=== PATIENT | female | born 1960 | race Caucasian/White ===

== ENCOUNTER 2016-11-07 14:06 | Emergency (ER) | payer OTHER ==
[~2016-11-07 14:06] MED LIST: AMITRIPTYLINE H25 MG PO; CARAFATE EQUIVAL1 GM PO; IRON325 MG PO; LORATADINE PO; LORAZEPAM1 MG PO; NAPROXEN250 MG PO; OMEPRAZOLE20 MG PO; PERCOCET1 TA1 PO; TRAZODONE HCL50 MG PO; VITAMIN D-31000 UNIT PO
--- NOTE | 2016-11-07 15:45 | ED CLINICAL REPORT ---
Clinical Report - Physicians/Mid Levels [facility] [address] [place] [address] 11/07/2016 14:06 Patient: ANA RANDALL Time Seen: 14:27 Nov 07 2016. Arrived- By private vehicle. Historian- patient. HISTORY OF PRESENT ILLNESS Chief Complaint: weakness. This started 12 months [employer]. (Patient reports whole month history of weight loss, fatigue, ecchymosis to bilateral lower extremities, without known injury, dizziness over the last 1 month. Has had multiple workups for this. Last saw her primary care provider 2 months ago for this. 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 Had recent endoscopy with ,with ulcers.). REVIEW OF SYSTEMS No sore throat, sinus drainage, cough, difficulty breathing or abdominal pain. No nausea, vomiting, diarrhea, difficulty with urination or blackouts. No difficulty with ambulation. All systems otherwise negative, except as recorded above. SOCIAL HISTORY Former smoker (1 week prior). No alcohol use or drug use. ADDITIONAL NOTES The nursing notes have been reviewed. PHYSICAL EXAM Vital Signs: 11/07/2016 14:19 BP: 142/91. HR: 109. RR: 18. O2 saturation: 100%. Temp: 97.8 F. Pain level now: 5/10. Appearance: Alert. Anxious. Eyes: Eyes normal inspection. ENT: Ears normal. Nose normal. Pharynx normal. Neck: Normal inspection. CVS: Tachycardia. Respiratory: No respiratory distress. Breath sounds normal. Abdomen: No visible injury. Soft. Bowel sounds normal. No abdominal tenderness. The bowel sounds are not abnormal. Skin: (small b/l medial slight ecchymosis, non tender largely). LABS, X-RAYS, AND EKG EKG: EKG time: (1455). No acute process. No acute ischemia. Rate: 86. Normal P waves. no changes from may 03/2016. EKG unchanged when compared with prior EKG. (may 032015). The study has been interpreted contemporaneously. The study has been independently viewed by me. The EKG appears to be a good tracing. Interpretation time: 1456. Laboratory Tests: UA-Culture if indicated: (BLAIRE: 11/07/2016 14:25) ( MsgRcvd 11/07/2016 15:11) Final results Test Result Flag Units (Reference) URINE COLOR YELLOW URINE APPEARANCE CLEAR URINE GLUCOSE NEGATIVE (NEGATIVE) URINE BILIRUBIN NEGATIVE (NEGATIVE) URINE KETONE NEGATIVE (NEGATIVE) URINE SPECIFIC GRAVITY 1.020 (1.010-1.030) URINE PH 6.0 (5.0-8.0) URINE PROTEIN NEGATIVE (NEGATIVE) URINE UROBILINOGEN 0.2 EU/dL (0.2-1.0) URINE NITRITE NEGATIVE (NEGATIVE) URINE BLOOD TRACE-LYSED (NEGATIVE) URINE LEUK ESTERASE NEGATIVE (NEGATIVE) URINE RBC NONE SEEN rbc/hpf (0-1) URINE WBC 0-1 wbc/hpf (0-1) URINE EPITHELIAL CELLS 5-10 EPI/hpf (0-5) URINE BACTERIA TRACE (<1+) (NONE SEEN) URINE COMMENT CULT NOT INDICATED URINE CULTURES ARE SET-UP BASED ON THE FOLLOWING CRITERIA:POSITIVE NITRITEPOSITIVE LEUKOCYTE ESTERASEGREATER THAN 10 WHITE BLOOD CELLSMODERATE (2+) OR GREATER BACTERIA CBC w Diff: (BLAIRE: 11/07/2016 14:57) ( MsgRcvd 11/07/2016 15:31) Final results Test Result Flag Units (Reference) WHITE BLOOD COUNT 8.6 K/uL (4.5-11.5) RED BLOOD COUNT 4.19 M/uL (4.00-5.20) HEMOGLOBIN 12.6 gm/dL (12.0-16.0) HEMATOCRIT 38.3 % (36.0-46.0) MEAN CELL VOLUME 91 fL (80-100) MEAN CORPUSCULAR HGB 30 pg (26-34) MEAN CORPUSCULAR HGB CONC 33 g/dL (31-37) RED CELL DISTRIBUTION WIDTH 14.3 % (11.6-14.8) PLATELET COUNT 300 K/uL (150-400) NEUTROPHIL % 67.4 % (50-75) LYMPH % 24.2 L % (25-40) MONO % 4.7 % (3-14) EOSINOPHIL % 3.0 % (0-4) BASOPHIL % 0.7 % (0-2) PT with INR: (BLAIRE: 11/07/2016 14:57) ( MsgRcvd 11/07/2016 15:32) Final results Test Result Flag Units (Reference) INR 0.9 (0.8-1.2) Low Intensity Therapy: INR 1.5-2.0 PT range 18.5-23.1Mod.Intensity Therapy: INR 2.0-3.0 PT range 23.1-31.5High Intensity Therapy: INR 2.5-3.5 PT range 27.4-35.5High Intensity Therapy 2: INR 3.0-4.0 PT range 31.5-39.3 APTT 30 SECONDS (24-34) Urine Drug Screen: (BLAIRE: 11/07/2016 14:25) ( MsgRcvd 11/07/2016 15:18) Final results Test Result Flag Units (Reference) AMPHETAMINE/METHAMPHETAMINE NEGATIVE (NEGATIVE) BARBITURATE NEGATIVE (NEGATIVE) BENZODIAZEPINE NEGATIVE (NEGATIVE) CANNABINOID NEGATIVE (NEGATIVE) COCAINE NEGATIVE (NEGATIVE) ECSTASY NEGATIVE (NEGATIVE) METHADONE NEGATIVE (NEGATIVE) OPIATE NEGATIVE (NEGATIVE) The urine drug screen is a qualitative screening test fordrug overdose and abuse. All screen results should beconsidered as presumptive.Drugs screened for are as follows:BenzodiazepinesCocaineAmphetamines/MetamphetaminesTHC (Tetrahydrocannabinol)OpiatesBarbituratesEcstasyMethadonePositive results are unconfirmed. For confirmation, notifythe lab for the specimen to be sent to the reference lab.All confirmations must be performed by a differentmethodology.The ingestion of natural herbal and plant productscontaining Ephedra/Ephedra metabolites can produce in urineone or more substances capable of cross reacting withamphetamine/methamphetamine immunoassays. These testsprovide a preliminary result only. A more specificalternative chemical method must be used to obtain aconfirmed analytical result. CMP: (BLAIRE: 11/07/2016 14:57) ( MsgRcvd 11/07/2016 15:28) Final results Test Result Flag Units (Reference) GLUCOSE 93 mg/dL (70-110) BUN 20 H mg/dL (7-18) CREATININE 1.0 mg/dL (0.6-1.3) Estimated GFR >60 mL/min Estimated GFR- >60 mL/min Note: Persistent reduction over 3 months in eGFR<60 mL/min/1.73 m2 defines CKD. Patients with eGFR values>=60 mL/min/1.73 m2 may also have CKD if evidence ofpersistent proteinuria. Additional information may be foundat www.kidney.org. SODIUM 143 mmol/L (136-145) POTASSIUM 4.2 mmol/L (3.5-5.1) CHLORIDE 106 mmol/L (98-107) CARBON DIOXIDE 29 mmol/L (21-32) CALCIUM 8.9 mg/dL (8.5-10.1) TOTAL PROTEIN 6.8 g/dL (6.4-8.2) ALBUMIN 3.6 g/dL (3.3-5.0) BILIRUBIN, TOTAL 0.2 mg/dL (0.0-1.0) ALKALINE PHOSPHATASE 100 U/L (46-116) AST (SGOT) 14 L U/L (15-37) ALT (SGPT) 22 U/L (12-78) LIPASE 143 U/L (73-393) AMYLASE 49 U/L (25-115) THYROID STIMULATING HORMONE 0.828 uIU/mL (0.30-3.74) . PROGRESS AND PROCEDURES Course of Care: patient with no cough or shortness of breath or chest pain. At this time no EKG changes, unremarkable lab workup she had previous workup within the last 2-3 months. Patient is stable here. No distress. Patient has no focal acute findings, this has been ongoing for the last 12 months. She is to follow-up with her primary care provider closely. Chronic COPD. No active disease, no indication for antibiotic, or further workup acutely here in the ER. Patient is stable. Physical exam findings are improved. Patient/family counseled. Disposition: Discharged. CLINICAL IMPRESSION Dizziness COPD. Weakness (chronic) Weight Loss (over 12 months) B/L ecchymosis. INSTRUCTIONS Follow-up: Follow up with your doctor. Call for an appointment. (Electronically signed by Chetna Mares P.A.-C 11/07/2016 16:05)
--- NOTE | 2016-11-07 15:45 | ED ORDER SUMMARY ---
..... Patient: ANA RANDALL OrderSheet [facility] VisitID: [id number] [address] [place] [address] 56y, F Registration Date/Time: 11/07/2016 ORDER SHEET Weight: 46 kg (measured) Allergies: Demerol, morphine GENERAL ORDERS: CBC w Diff Urgent (14:46 11/07/2016 EKoroleva P.A.-C) (Ack 14:48 NHouse ER Tech1) (15:07 NHouse ER Tech1) CMP Urgent (14:46 11/07/2016 EKoroleva P.A.-C) (Ack 14:48 NHouse ER Tech1) (15:07 NHouse ER Tech1) UA-Culture if indicated Urgent (14:46 11/07/2016 EKoroleva P.A.-C) (Ack 14:48 NHouse ER Tech1) (14:50 Jasbir R.N.) PT with INR Urgent (14:46 11/07/2016 EKoroleva P.A.-C) (Ack 14:48 NHouse ER Tech1) (15:07 NHouse ER Tech1) PTT Urgent (14:46 11/07/2016 EKoroleva P.A.-C) (Ack 14:48 NHouse ER Tech1) (15:07 NHouse ER Tech1) Lipase Urgent (14:46 11/07/2016 EKoroleva P.A.-C) (Ack 14:48 NHouse ER Tech1) (15:07 NHouse ER Tech1) Amylase Urgent (14:46 11/07/2016 EKoroleva P.A.-C) (Ack 14:48 NHouse ER Tech1) (15:07 NHouse ER Tech1) TSH Urgent (14:46 11/07/2016 EKoroleva P.A.-C) (Ack 14:48 NHouse ER Tech1) (15:07 NHouse ER Tech1) Urine Drug Screen Urgent (14:46 11/07/2016 EKoroleva P.A.-C) (Ack 14:48 NHouse ER Tech1) (14:50 Jasbir R.N.) Boom Supervisor (Continuous) (14:47 11/07/2016 Louie Avina) (14:50 Jasbir Cruz) EKG - ER Stat (14:47 11/07/2016 Louie Avina) (14:55 LNations ER Tech1) Vitals (15:34 11/07/2016 Louie Avina) (15:49 LNations ER Tech1) MEDICATION ORDERS: IV FLUIDS: ORDER SHEET NOTES: [Electronically signed by Chetna Mares P.A.-C (16:05 11/07/2016)] [Electronically signed by Teena Glynn R.N. (19:18 11/07/2016)] [Electronically locked/signed by Teena Glynn R.N. (19:18 11/07/2016)]
--- NOTE | 2016-11-07 15:45 | ED NURSING NOTES ---
Clinical Report - Nurses [facility] [address] [place] [address] 11/07/2016 14:06 Patient: ANA RANDALL TRIAGE Triage time 14:16. Acuity: LEVEL 4. Chief Complaint: (WT LOSS, bruising). Alert. No acute distress. TAMMY COMA SCORE: Grandin Coma Scale: 15- eyes open spontaneously (4); best verbal response- oriented x 4 (5); best motor response- obeys commands (6). --14:28 Teena Glynn R.N. 14:19 11/07/16. BP: 142/91. HR: 109. RR: 18. O2 saturation: 100%. Temp: 97.8 F (oral). Pain level now: 10. --14:28 Teena Gylnn R.N. Weight: 46 kg measured. --14:17 Teena Glynn R.N.. Height/Length: 66 inches Per Patient. BMI: 16.4. --14:19 Teena Glynn R.N. Medications Amyltripline. LORazepam Oral 2 mg, PRN. Naproxen Oral. Omeprazole Oral. TraZODone HCl Oral, daily. Vitamin D Oral. --14:21 Teena Glynn R.N. some sntibiotic for chronic UTI's. --14:22 Teena Glynn R.N. Medication/allergy information source: the patient. --14:28 Teena Glynn R.N. Allergies Demerol. morphine. --14:21 Teena Glynn R.N. History Arrived by private vehicle. Historian: patient. Unaccompanied. Primary physician (Giuseppe). Onset. ("a long time"). SOCIAL HX: Smoker- current status unknown (quit a week ago). No alcohol use or drug use. FALL RISK ASSESSMENT: Fall risk assessment completed. No fall risk identified. FUNCTIONAL ASSESSMENT: Functional assessment: no impairments noted. LEARNING NEEDS ASSESSMENT: The learning needs assessment revealed no barriers. --14:28 Teena Glynn R.N. PROBLEMS: COPD - Chronic Obstructive Pulmonary Disease [Active]. Ovarian Cancer [Active]. Tension-Type Headache [Active]. Tourette Syndrome [Active]. --14: Teena Glynn R.N. Hypocalcemia. Gastritis. Nausea. Near Syncope. Stomach Cancer. Concussion. Pharyngitis. Lumbar Strain. Fall. Migraine Headache. Head Injury. Cancer - in remission now. Emphysema. COPD - Chronic Obstructive Pulmonary Disease. Back Pain. Back Injury. Intervertebral Disc Disease. Pelvic Pain. UTI - Urinary Tract Infection. Hypotension. Eustachian Tube Dysfunction. Vertigo. Myofascial Strain. Constipation. Healing Abscess. Abscess. Depression. Tetanus Status. Cellulitis. Heart Disease. Abdominal Pain. Frequent Ear Infections. Acute Otalgia. Acute Pain. Cardiovascular Risk Factors. Chest Pain. Cervical Strain. Immunizations. LNMP - Last Normal Menstrual Period. Malignant Lymphoma. Bronchitis. Cancer. Pleurisy. Chest Wall Pain. Hypertension. --14:23 Teena Glynn R.N. Anxiety Reaction [RuleOut]. Allergic Reaction [RuleOut]. Pilonidal Cyst [RuleOut]. Labyrinthitis [RuleOut]. Rib Fracture [RuleOut]. --14:23 Teena Glynn R.N. ADDITIONAL SURGERIES: Ablation for rapid HR. Appendectomy. Back Surgery. Hysterectomy. Oophorectomy. Salpingectomy. --14:23 Teena Glynn R.N. Assessment GENERAL / NEURO / PSYCH: The patient is awake and alert, is oriented and cooperative and appears anxious. She has good eye contact. RESPIRATORY: Respirations not labored. SKIN: Skin is warm and dry. --14:28 Teena Glynn R.N. Interventions ID and allergy band on patient. To treatment room. --14:28 Teena Glynn R.N. PHYSICAL ASSESSMENT 14:31 11/07/16. Ambulatory to room. Patient gowned. GENERAL / NEURO / PSYCH: The patient is awake and alert, is oriented and cooperative and appears anxious. She has good eye contact. RESPIRATORY: Respirations not labored. SKIN: Skin is warm and dry. --14:31 Teena Glynn R.N. NURSING PROGRESS NOTES 14:17 collecting urine specimen. --14:17 Teena Glynn R.N. 14:31 11/07/16. Patient gowned. Head of bed elevated. Call light placed in reach. Side rails up x 1. Bed placed in lowest position. Brakes of bed on. --14:31 Teena Glynn R.N. 14:32 11/07/16. :patient confirmed. Clean catch urine collected; sample sent to lab. Specimen labeled in the presence of the patient. --14:32 Teena Glynn R.N. EKG time: (1455). EKG was ordered, performed by a tech and shown to the ED physician. --14:55 Bere Taylor ER Tech1 Blood samples drawn by lab. --15:01 Teena Glynn R.N. monitor and storage bin tender, pulse oximeter and NIBP monitor placed on patient. --15:01 Teena Glynn R.N. 15:43 11/07/16. BP: 132/70. HR: 97. RR: 18. O2 saturation: 100%. Pain level now: 10. --15:44 Teena Glynn R.N. 15:44 11/07/16. The patient is calm. Overall patient status is the same- she states feels the same. RESPIRATORY: No respiratory distress. SKIN: Skin is warm and dry. --15:44 Teena Glynn R.N. 15:15 11/07/16. BP: 128/80. HR: 97. RR: 18. O2 saturation: 98% on room air. --19:17 Teena Glynn R.N. DISPOSITION / DISCHARGE 15:52 11/07/16. BP: 132/70. HR: 96. O2 saturation: 97%. --15:52 Bere Taylor ER Tech1 Departure time: 1555. Condition at departure: stable. No learning barriers present. Discharge instructions provided and reviewed with the patient. Patient verbalized understanding. Written instructions provided in Lao. The patient was discharged home and unaccompanied at time of discharge. She left the Emergency Department ambulatory and via private vehicle. FALL RISK ASSESSMENT: Fall risk assessment completed. No fall risk identified. --19:18 Renard, Teena, R.N. Locked/Released at 11/07/2016 19:18 by Teena Glynn R.N.
--- NOTE | 2016-11-07 15:45 | ED ORDER SUMMARY ---
..... Patient: ANA RANDALL OrderSheet [facility] VisitID: [id number] [address] [place] [address] 56y, F Registration Date/Time: 11/07/2016 ORDER SHEET Weight: 46 kg (measured) Allergies: Demerol, morphine GENERAL ORDERS: CBC w Diff Urgent (14:46 11/07/2016 EKoroleva P.A.-C) (Ack 14:48 NHouse ER Tech1) (15:07 NHouse ER Tech1) CMP Urgent (14:46 11/07/2016 EKoroleva P.A.-C) (Ack 14:48 NHouse ER Tech1) (15:07 NHouse ER Tech1) UA-Culture if indicated Urgent (14:46 11/07/2016 EKoroleva P.A.-C) (Ack 14:48 NHouse ER Tech1) (14:50 Jasbir R.N.) PT with INR Urgent (14:46 11/07/2016 EKoroleva P.A.-C) (Ack 14:48 NHouse ER Tech1) (15:07 NHouse ER Tech1) PTT Urgent (14:46 11/07/2016 EKoroleva P.A.-C) (Ack 14:48 NHouse ER Tech1) (15:07 NHouse ER Tech1) Lipase Urgent (14:46 11/07/2016 EKoroleva P.A.-C) (Ack 14:48 NHouse ER Tech1) (15:07 NHouse ER Tech1) Amylase Urgent (14:46 11/07/2016 EKoroleva P.A.-C) (Ack 14:48 NHouse ER Tech1) (15:07 NHouse ER Tech1) TSH Urgent (14:46 11/07/2016 EKoroleva P.A.-C) (Ack 14:48 NHouse ER Tech1) (15:07 NHouse ER Tech1) Urine Drug Screen Urgent (14:46 11/07/2016 EKoroleva P.A.-C) (Ack 14:48 NHouse ER Tech1) (14:50 Jasbir R.N.) [employer]stabout Head (Continuous) (14:47 11/07/2016 Louie Avina) (14:50 Jasbir Cruz) EKG - ER Stat (14:47 11/07/2016 Louie Avina) (14:55 LNations ER Tech1) Vitals (15:34 11/07/2016 Louie Avina) (15:49 LNations ER Tech1) MEDICATION ORDERS: IV FLUIDS: ORDER SHEET NOTES: [Electronically signed by Chetna Mares P.A.-C (16:05 11/07/2016)] [Electronically signed by Teena Glynn R.N. (19:18 11/07/2016)] [Electronically locked/signed by Teena Glynn R.N. (19:18 11/07/2016)]
--- NOTE | 2016-11-07 19:19 | ED MAR SUMMARY ---
..... Medication Administration Record [facility] [address] [place], [place] [id number] Patient: ANA RANDALL Visit ID: [id number] 56y, F Weight: 46.0 kg Height/Length: 66 in BMI: 16.4 ALLERGIES: Demerol, morphine
--- NOTE | 2016-11-07 19:19 | ED MED RECONCILIATION SUMMARY ---
Patient: ANA RANDALL Medication Reconciliation Report [facility] VisitID: [id number] [address] [place] [address] 56y, F Registration Date/Time: 11/07/2016 Weight: 46 kg Height/Length: 66 in. BMI: 16.4 ALLERGIES: Demerol, morphine The patient's Home Medications are listed below: THE FOLLOWING MEDICATIONS NEED TO BE RECONCILED: Amyltripline LORazepam Oral 2 mg, PRN Naproxen Oral Omeprazole Oral some sntibiotic for chronic UTI's TraZODone HCl Oral, daily Vitamin D Oral The source(s) of the original Home Medication information: patient The following Medications were given to the patient in the Emergency Department: None. The following Medications were prescribed to the patient: None.
--- NOTE | 2016-11-07 19:19 | ED MED RECONCILIATION SUMMARY ---
Patient: ANA RANDALL Medication Reconciliation Report [facility] VisitID: [id number] [address] [place] [address] 56y, F Registration Date/Time: 11/07/2016 Weight: 46 kg Height/Length: 66 in. BMI: 16.4 ALLERGIES: Demerol, morphine The patient's Home Medications are listed below: THE FOLLOWING MEDICATIONS NEED TO BE RECONCILED: Amyltripline LORazepam Oral 2 mg, PRN Naproxen Oral Omeprazole Oral some sntibiotic for chronic UTI's TraZODone HCl Oral, daily Vitamin D Oral The source(s) of the original Home Medication information: patient The following Medications were given to the patient in the Emergency Department: None. The following Medications were prescribed to the patient: None.
--- NOTE | 2016-11-07 19:19 | ED MAR SUMMARY ---
..... Medication Administration Record [facility] [address] [place], [place] [id number] Patient: ANA RANDALL Visit ID: [id number] 56y, F Weight: 46.0 kg Height/Length: 66 in BMI: 16.4 ALLERGIES: Demerol, morphine
--- NOTE | 2016-11-07 19:19 | ED DISCHARGE INSTRUCTIONS ---
Patient: ANA RANDALL General Instructions [facility] VisitID: [id number] [address] [place] [address] 56y, F Registration Date/Time: 11/07/2016 Dizziness COPD. Weakness (chronic) Weight Loss (over 12 months) B/L ecchymosis. INSTRUCTIONS Follow-up: Follow up with your doctor. Call for an appointment. ADDITIONAL INFORMATION Dizziness [Uncertain Cause] Dizziness is a common symptom sometimes described as "lightheadedness" or feeling like you are going to faint. If it lasts for only a few seconds and is related to changes in position (such as getting up after lying or sitting for a long time), it is usually not a sign of anything serious. Dizziness that lasts for minutes to hours, or comes on for no apparent reason, may be a sign of a more serious problem (such as dehydration, a medicine reaction, disease of the heart or brain). Today's exam did not show an exact cause for your dizzy spell . Sometimes additional tests are required before a cause can be found. Therefore, it is important to follow up with your doctor if your symptoms continue. Home Care: 1) If a dizzy spell occurs and lasts more than a few seconds, lie down until it passes. If you are lying down, then you cannot hurt yourself by falling if you do faint. 2) Do not drive or operate dangerous equipment until the dizzy spells have stopped for at least 48 hours. 3) If dizzy spells occur with sudden standing, this may be a sign of mild dehydration. Drink extra fluids over the next few days. 4) If you recently started a new medicine or if you had the dose of a current medicine increased (especially blood pressure medicine), talk with the prescribing doctor about your symptoms. Dose adjustments may be needed. Follow Up with your doctor for further evaluation within the next seven days, if your symptoms continue. Get Prompt Medical Attention if any of the following occur: -- Worsening of your symptoms -- Fainting, headache or seizure -- Repeated vomiting -- Feeling like you or the room is spinning -- Chest, arm, neck, back or jaw pain -- Palpitations (the sense that your heart is fluttering or beating fast or hard) -- Shortness of breath -- Blood in vomit or stool (black or red color) -- Weakness of an arm or leg or one side of the face -- Difficulty with speech or vision You have been given the following additional information: Dizziness, Unk Cause (Electronically signed by Chetna Mares P.A.-C 11/07/2016 16:05)
== END 2016-11-07 15:54 | disposition home or self-care (01) ==
LOC: ED SRH 14:06
DX: R42 Dizziness and giddiness (principal); J44.9 Chronic obstructive pulmonary disease, unspecified; R53.1 Weakness; R63.4 Abnormal weight loss; R58 Hemorrhage, not elsewhere classified; I10 Essential (primary) hypertension; Z79.899 Other long term (current) drug therapy; Z87.891 Personal history of nicotine dependence; Z88.5 Allergy status to narcotic agent
CPT/HCPCS: 90004; 90074; 90100; 92235; 92530; 92760; 92761; 92762; 92763; 92764; 92765; 92766; 92767; 93140; 94001; 94060; 95059

== ENCOUNTER 2017-03-23 22:48 | Emergency (ER) | payer OTHER ==
--- NOTE | 2017-03-24 19:43 | ED NURSING NOTES ---
Clinical Report - Nurses [facility] [place] [address] 03/23/2017 22:47 Patient: ANA RANDALL TRIAGE Triage time 22:54 Mar 23 2017. Acuity: LEVEL 4. Chief Complaint: DEPRESSION. Alert. No acute distress. SEPSIS SCREEN: Sepsis Screen. Negative (no infection suspected/documented). --23:11 Lazaro Smith R.N. 22:54 03/23/17. BP: 155/78. HR: 103. RR: 16. O2 saturation: 100%. Temp: 97.7 F. Pain level now: 0/10. --23:11 Lazaro Smith R.N. Weight: 47.6 kg stated. Height/Length: 66 inches Per Patient. BMI: 16.9. --22:54 Lazaro Smith R.N. Medications Naproxen Oral. Omeprazole Oral. --01:37 Marissa Chin R.N. Amyltripline 150 mg at hs. LORazepam Oral 2 mg, 3x a day as needed. TraZODone HCl Oral 50 mg, 1 and 1/2 tabs, at bedtime. Vitamin D Oral (Capsule 1000 unit) 1 capsule, hs. --01:37 Karla Morrison R.N. OLANZapine Oral 5 mg, at bedtime. --11:41 Karla Morrison R.N. The following entry was struck by Karla Morrison R.N., 11:41 (03/24/17) Reason - other. <<STRICKEN ENTRY-- some sntibiotic for chronic UTI's. --01:37 Marissa Chin R.N. --END STRIKE>> The following entry was struck and corrected by Karla Morrison R.N., 11:41 (03/24/17) Reason for correction - other(correction). <<STRICKEN ENTRY-- LORazepam Oral 2 mg, PRN. --01:37 Chin, Marissa, R.N. --END STRIKE>> The following entry was struck and corrected by Karla Morrison R.N., 11:40 (03/24/17) Reason for correction - other(correction). <<STRICKEN ENTRY-- TraZODone HCl Oral, daily. --01:37 Marissa Chin R.N. --END STRIKE>> The following entry was struck and corrected by Karla Morrison R.N., 11:39 (03/24/17) Reason for correction - other(correction). <<STRICKEN ENTRY-- Amyltripline. --01:37 Marissa Chin R.N. --END STRIKE>> The following entry was struck and corrected by Karla Morrison R.N., 11:39 (03/24/17) Reason for correction - other(correction). <<STRICKEN ENTRY-- Vitamin D Oral. --01:37 Marissa Chin R.N. --END STRIKE>>. Allergies Demerol. morphine. --01:37 Marissa Chin R.N. History Arrived by private vehicle. Historian: patient. Onset. (Pt has been feeling"low" for quite some time now. She has a ernst relationship with one of her sons, Jeison, and she is very bothered by the inability to make amends with him. She denies SI or previous attempts to harm herself or others. She just states she is seeking some counseling.). She has had anxiety and describes feelings of depression. Treatment RADIOGRAPHER ANGIOGRAM: None. SOCIAL HX: Former smoker (Pt quit 3-4 weeks ago). No alcohol use or drug use. No infectious disease exposure. SELF HARM ASSESSMENT: A self harm assessment was performed. The patient answered "yes" to the question "Have you recently felt down, depressed, or hopeless?" and "no" to the question "Do you have thoughts of harming or killing yourself?", "Are you here because you tried to hurt yourself?", "Have you ever tried to hurt yourself before today?", "Have you recently had thoughts about harming or killing others?" and "Do you have any dangerous items in your possession?". The patient reports their behavior. In the ED the patient has been agitated. She was placed in direct sight of the nurses station. In ED, no observed suicidal comments. FALL RISK ASSESSMENT: Fall risk assessment completed. No fall risk identified. NUTRITIONAL RISK ASSESSMENT: The nutritional risk assessment revealed no deficiencies. LEARNING NEEDS ASSESSMENT: The learning needs assessment revealed no barriers. FUNCTIONAL ASSESSMENT: Functional assessment performed: independent with the activities of daily living; has poor vision- this visual impairment is an ongoing problem. No communication barrier. No mobility impairment. No hearing impairment. No cognitive impairment. The patient is not under care for hers functional impairment. SKIN INTEGRITY ASSESSMENT: Skin integrity risk assessment completed. No skin integrity risk identified. --23:11 Lazaro Smith R.N. PROBLEMS: COPD - Chronic Obstructive Pulmonary Disease [Active]. Ovarian Cancer [Active]. Tension-Type Headache [Active]. Tourette Syndrome [Active]. --23:07 Lazaro Smith R.N. Cardiac ablations x 3. Dizziness. Hypocalcemia. Gastritis. Nausea. Near Syncope. Stomach Cancer. Concussion. Pharyngitis. Lumbar Strain. Fall. Migraine Headache. Head Injury. Cancer - in remission now. Emphysema. COPD - Chronic Obstructive Pulmonary Disease. Back Pain. Back Injury. Intervertebral Disc Disease. Pelvic Pain. UTI - Urinary Tract Infection. Hypotension. Eustachian Tube Dysfunction. Vertigo. Myofascial Strain. Constipation. Healing Abscess. Abscess. Depression. Tetanus Status. Cellulitis. Heart Disease. Abdominal Pain. Frequent Ear Infections. Acute Otalgia. Acute Pain. Cardiovascular Risk Factors. Chest Pain. Cervical Strain. Immunizations. LNMP - Last Normal Menstrual Period. Malignant Lymphoma. Bronchitis. Cancer. Pleurisy. Chest Wall Pain. Hypertension. --23:07 Lazaro Smith R.N. Anxiety Reaction [RuleOut]. Allergic Reaction [RuleOut]. Pilonidal Cyst [RuleOut]. Labyrinthitis [RuleOut]. Rib Fracture [RuleOut]. --23:07 Lazaro Smith R.N. ADDITIONAL SURGERIES: Ablation for rapid HR. Appendectomy. Back Surgery. Hysterectomy. Oophorectomy. Salpingectomy. --23:07 Lazaro Smith R.N. Assessment The patient states feels the same. --23:11 Lazaro Smith R.N. Interventions ID band on patient. To treatment room. --23:11 Lazaro Smith R.N. PHYSICAL ASSESSMENT Ambulatory to room. GENERAL / NEURO / PSYCH: Alert. Oriented X 4. Appears in no acute distress. Patient's speech is whispered. Patient's mood/affect appears flat. Poor eye contact. Denies suicidal thoughts. She appears underweight. Patient appears unkempt. Hair is uncombed and matted. RESPIRATORY: Respirations not labored. CVS: Capillary refill less than 2 seconds. GI / : Bowel sounds within normal limits. SKIN: Skin intact. Skin is warm and dry. Skin color is within normal limits. --23:12 Lazaro Smith R.N. 11:44 03/24/17. GENERAL / NEURO / PSYCH: ( Med list clarified, pt's friend came in, was allowed to visit with pt's permission). --11:44 Karla Morrison R.N. NURSING PROGRESS NOTES The plan of care for this patient has been created. Monitoring of patient in place. Patient gowned. Head of bed elevated. Reassurance given. Patient ID band checked for patient name and birthdate: patient confirmed. Instructions provided to collect clean catch urine and patient verbalized understanding. Clean catch urine collected with return of yellow-colored urine; sample sent to lab for drug screen. Specimen labeled in the presence of the patient. Two patient identifiers checked. Call light placed in reach. Side rails up. Bed placed in lowest position. Patient ready for evaluation- ED physician notified. ( MD in to assess Pt. Breathalyzer 0.00). --23:13 Lazaro Smith R.N. 23:15. Care transferred and report received. --23:15 Callum Medellin R.N. 00:43 PAT steam trap man with pt for eval. --00:56 Callum Medellin R.N. 01:21 03/24/17. BP: 130/70. HR: 90. RR: 17. O2 saturation: 96%. Pain level now: 0/10. --01:22 Callum Medellin R.N. 01:30. Patient ID band checked for patient name and birthdate: patient confirmed. Blood samples drawn from the left forearm with 22g butterfly by nurse ; labeled in presence of the patient and sent to lab: rainbow set. --01:38 Callum Medellin R.N. 02:47 03/24/17. BP: 113/70. HR: 89. RR: 17. O2 saturation: 95% on room air. --02:48 Callum Medellin R.N. 02:47. The patient is sleeping. RESPIRATORY: No respiratory distress. SKIN: Skin color within normal limits. --02:48 Callum Medellin R.N. 03:16 03/24/2017 Keflex (Cephalexin) PO 500 mg given. Allergies verified and confirmed 5 rights. --03:16 Callum Medellin R.N. 03:22. The patient is calm and resting quietly. GENERAL / NEURO / PSYCH: Alert. Patient appears calm and cooperative. Affect appears normal. RESPIRATORY: No respiratory distress. SKIN: Skin is warm and dry. Skin color within normal limits. --03:22 Callum Medellin R.N. 03:49 03/24/2017 Trazodone PO 50 mg given. Allergies verified, confirmed 5 rights and sedative warning given to the patient. --03:49 Callum Medellin R.N. 03:49 03/24/2017 ZYPREXA ZYDIS ODT (OLANZapine) PO 5 mg given. Allergies verified, confirmed 5 rights and sedative warning given to the patient. --03:49 Callum Medellin R.N. 03:49 03/24/2017 Ativan (LORazepam) PO 1 mg given. Allergies verified, confirmed 5 rights and sedative warning given to the patient. --03:50 Callum Medellin R.N. 04:20 03/24/17. BP: 135/90. HR: 96. RR: 16. O2 saturation: 95% on room air. --04:24 Callum Medellin R.N. The patient is calm and resting quietly. GENERAL / NEURO / PSYCH: Alert. Patient appears calm and cooperative. RESPIRATORY: No respiratory distress. SKIN: Skin is warm but not dry. Skin color within normal limits. --04:24 Callum Medellin R.N. 05:09 03/24/17. BP: 119/65. HR: 99. RR: 17. O2 saturation: 95% on room air. --05:10 Callum Medellin R.N. 05:18 Patient requested something to eat - pt given sandwich, and breakfast tray ordered. --05:19 Callum Medellin R.N. 06:32. The patient is calm and resting quietly. GENERAL / NEURO / PSYCH: Alert. Affect appears normal. RESPIRATORY: No respiratory distress. SKIN: Skin is warm and dry. Skin color within normal limits. --06:42 Callum Medellin R.N. 06:38 03/24/17. BP: 105/71. HR: 101. RR: 18. O2 saturation: 98%. --06:42 Callum Medellin R.N. 07:17. Care transferred and report given (Will MURPHY). --07:18 Callum Medellin R.N. ( Pt belongings placed into locker 4, lock 1). --07:28 Silvino Adams 07:38 03/24/17. ( Patient states that she wants to know what we want from her and that everyone hates her. Patient told me she wants to go to [place] so she can say goodbye to her son and kill herself. Patient states she has a way to do it she just needs to get to [place]. Patient rambling about taking pills and I asked if she had any medication on her at this time. Patient denied but all personal belongings collected and locked away. Patient calls frequently asking for sugar and coffee.). --08:44 Sue Rao R.N. 08:00 03/24/17. ( Patient c/o of fingers swelling and not being able to see the creases in her fingers. Examined finger which appear normal and reported to MD.). --08:45 Sue Rao R.N. late entry - 08:00 03/24/17. ( Patient reported to me that she was going to [place] to get a gun and shoot herself in the head after she visits her son. Patient was then rambling about previously taking pills and she wouldn't repeat that because she couldn't breath. Patient states her son's hate her and she is a waste to society and no one will notice her gone. Patient repeatedly called out stating she has nothing to live for and crying and asking for coffee. I asked patient if she had any weapons on her person she said no but would be able to obtain a way once she get's to [place].). --16:40 Sue Rao R.N. 08:15 03/24/17. ( Breakfast given patient requests more sugar.). --08:46 Sue Rao R.N. ( Pt received lunch meal.). --12:05 Rusty Raymundo, MARIAMA Tech1 ( Patient calling out frequently around every 5 min to request needs and talk about money being stolen and her son's. Assisted patient with ADL's and redirected conversation to current needs.). --12:25 Sue Rao R.N. 13:19 03/24/2017 Tylenol (Acetaminophen) PO Tablets 1000 mg given. Allergies verified and confirmed 5 rights. --13:19 Sue Rao R.N. ( Patient calling out constantly asking for food and coffee stating she changed her mind and she isn't suicidal anymore and has a place to go. Requesting sleeping medication explained needs to have an eval from PAT team before giving medications.). --14:32 Sue Rao R.N. ( Patient out of her room to use restroom patient then ran into family room and started to use the phone. I asked patient to return to her room patient continued to scream at the person on the phone stating that it is Sunday and everyone is lying. Asked patient to please return her room and she refused. Asked patient if she would like me to call security and she said yes. When I called out for security patient ran quickly to her room. We moved patient to room 16 since patient was not able to follow directions. Patient began to scream and state she would behave. Gave patient fluids and a blanket and asked her to wait for her next eval. Patient then threw drink on floor and threw herself down while she was being watched on the monitor and started screaming she fell and broke her back. Assisted patient to the bed and reported to MD. No redness noted on back.). --16:36 Sue Rao R.N. ( Report received from Sue Fields RN. Patient is currently resting in bed, eating a sandwich. Patient appears restless, playing with her blankets. is awake and conversant.). --19:25 Jose Jain R.N. ( Dr. Lam just left the patient's room and is writing the patient's discharge. He states that the patient was uncooperative with his verbal discharge instructions.). --19:42 Jose Jain R.N. DISPOSITION / DISCHARGE Departure time: 20:00. Condition at departure: stable. No learning barriers present. Discharge instructions provided and reviewed with the patient. Reviewed warnings (to followup). Treatments reviewed. Reviewed referrals for followup. Patient verbalized understanding. Written instructions provided in Wallisian. The patient was discharged home and unaccompanied at time of discharge. She left the Emergency Department ambulatory and via private vehicle. Driving (pt states that she is calling someone to give her a ride home). ( pt refused to sign the discharge instructions). --20:02 Jose Jain R.N. 19:59 03/24/17. BP: 145/94. HR: 94. RR: 20 (regular and unlabored). O2 saturation: 97% on room air. Pain level now: 0/10. Additional comments: pt denies having pain. --20:02 Jose Jain R.N. Locked/Released at 03/24/2017 20:02 by Jose Jain R.N.
--- NOTE | 2017-03-24 19:43 | ED CLINICAL REPORT ---
Clinical Report - Physicians/Mid Levels [facility] [address] [place] [address] 03/23/2017 22:47 Patient: ANA RANDALL Time Seen: 2302. Arrived- By private vehicle. Historian- patient. Referred (self). HISTORY OF PRESENT ILLNESS Chief Complaint: DEPRESSED. This started past several days. Has been depressed. No unusual behavior, paranoia, delusions, suicidal thoughts or self-injury inflicted. No hallucinations. The symptoms are described as moderate. No injury is present. Additional history - son is stationed in [place]. Reports missing him. Similar symptoms previously: None. Recent medical care: Not recently seen/assessed. REVIEW OF SYSTEMS No headache, chest pain, palpitations, vomiting or skin rash. PAST HISTORY See nurses notes. SOCIAL HISTORY Smoker- current status unknown. No alcohol use or drug use. No social support. Has place to stay. FAMILY HISTORY No history of suicide attempts. ADDITIONAL NOTES The nursing notes have been reviewed. PHYSICAL EXAM Vital Signs: Oxygen saturation normal. Appearance: Alert. No acute distress. Appearance is normal. Eyes: Pupils equal, round and reactive to light. Neck: Normal inspection. Neck supple. CVS: Normal heart rate and rhythm. Heart sounds normal. Respiratory: Breath sounds normal. Chest nontender. Abdomen: Nontender. Not soft. Skin: Skin warm and dry. Normal skin color. Normal skin turgor. Psych / Neuro: Oriented X 3. Mood and affect normal. Speech normal. Cognition normal. Thought process and content normal. Insight and judgement normal. Cranial nerves normal (as tested). No cerebellar findings. No motor deficit. No sensory deficit. Reflexes normal. LABS, X-RAYS, AND EKG Laboratory Tests: UA-Culture if indicated: (BLAIRE: 03/24/2017 00:01) ( MsgRcvd 03/24/2017 03:08) Final results Test Result Flag Units (Reference) URINE COLOR YELLOW URINE APPEARANCE CLOUDY URINE GLUCOSE NEGATIVE (NEGATIVE) URINE BILIRUBIN NEGATIVE (NEGATIVE) URINE KETONE NEGATIVE (NEGATIVE) URINE SPECIFIC GRAVITY 1.025 (1.010-1.030) URINE PH 6.0 (5.0-8.0) URINE PROTEIN NEGATIVE (NEGATIVE) URINE UROBILINOGEN 0.2 EU/dL (0.2-1.0) URINE NITRITE NEGATIVE (NEGATIVE) URINE BLOOD NEGATIVE (NEGATIVE) URINE LEUK ESTERASE NEGATIVE (NEGATIVE) URINE RBC 0-1 rbc/hpf (0-1) URINE WBC 0-1 wbc/hpf (0-1) URINE EPITHELIAL CELLS 0-1 EPI/hpf (0-5) URINE BACTERIA MANY (4+) (NONE SEEN) URINE COMMENT CULTURE INDICATED URINE CULTURES ARE SET-UP BASED ON THE FOLLOWING CRITERIA:POSITIVE NITRITEPOSITIVE LEUKOCYTE ESTERASEGREATER THAN 10 WHITE BLOOD CELLSMODERATE (2+) OR GREATER BACTERIA CBC w Diff: (BLAIRE: 03/24/2017 01:30) ( MsgRcvd 03/24/2017 01:40) Final results Test Result Flag Units (Reference) WHITE BLOOD COUNT 11.3 K/uL (4.5-11.5) RED BLOOD COUNT 3.83 L M/uL (4.00-5.20) HEMOGLOBIN 11.3 L gm/dL (12.0-16.0) HEMATOCRIT 33.9 L % (36.0-46.0) MEAN CELL VOLUME 89 fL (80-100) MEAN CORPUSCULAR HGB 30 pg (26-34) MEAN CORPUSCULAR HGB CONC 33 g/dL (31-37) RED CELL DISTRIBUTION WIDTH 13.8 % (11.6-14.8) PLATELET COUNT 374 K/uL (150-400) NEUTROPHIL % 64.6 % (50-75) LYMPH % 26.1 % (25-40) MONO % 7.6 % (3-14) EOSINOPHIL % 1.2 % (0-4) BASOPHIL % 0.5 % (0-2) CMP: (BLAIRE: 03/24/2017 01:30) ( MsgRcvd 03/24/2017 01:54) Final results Test Result Flag Units (Reference) GLUCOSE 93 mg/dL (70-110) BUN 17 mg/dL (7-18) CREATININE 0.9 mg/dL (0.6-1.3) Estimated GFR >60 mL/min Estimated GFR- >60 mL/min Note: Persistent reduction over 3 months in eGFR<60 mL/min/1.73 m2 defines CKD. Patients with eGFR values>=60 mL/min/1.73 m2 may also have CKD if evidence ofpersistent proteinuria. Additional information may be foundat www.kidney.org. SODIUM 142 mmol/L (136-145) POTASSIUM 3.6 mmol/L (3.5-5.1) CHLORIDE 104 mmol/L (98-107) CARBON DIOXIDE 24 mmol/L (21-32) CALCIUM 8.8 mg/dL (8.5-10.1) TOTAL PROTEIN 7.0 g/dL (6.4-8.2) ALBUMIN 3.3 g/dL (3.3-5.0) BILIRUBIN, TOTAL 0.3 mg/dL (0.0-1.0) ALKALINE PHOSPHATASE 120 H U/L (46-116) AST (SGOT) 12 L U/L (15-37) ALT (SGPT) 20 U/L (12-78) Urine Drug Screen: (BLAIRE: 03/23/2017 22:56) ( MsgRcvd 03/23/2017 23:23) Final results Test Result Flag Units (Reference) AMPHETAMINE/METHAMPHETAMINE NEGATIVE (NEGATIVE) BARBITURATE NEGATIVE (NEGATIVE) BENZODIAZEPINE NEGATIVE (NEGATIVE) CANNABINOID NEGATIVE (NEGATIVE) COCAINE NEGATIVE (NEGATIVE) ECSTASY NEGATIVE (NEGATIVE) METHADONE NEGATIVE (NEGATIVE) OPIATE NEGATIVE (NEGATIVE) The urine drug screen is a qualitative screening test fordrug overdose and abuse. All screen results should beconsidered as presumptive.Drugs screened for are as follows:BenzodiazepinesCocaineAmphetamines/MetamphetaminesTHC (Tetrahydrocannabinol)OpiatesBarbituratesEcstasyMethadonePositive results are unconfirmed. For confirmation, notifythe lab for the specimen to be sent to the reference lab.All confirmations must be performed by a differentmethodology.The ingestion of natural herbal and plant productscontaining Ephedra/Ephedra metabolites can produce in urineone or more substances capable of cross reacting withamphetamine/methamphetamine immunoassays. These testsprovide a preliminary result only. A more specificalternative chemical method must be used to obtain aconfirmed analytical result. . PROGRESS AND PROCEDURES Course of Care: Patient presented here for depression. Patient has been waiting out in the emergency department Lobby for over 11 hours before checking in.patient was informed that she needed to leave the hospital premises or check-in. Patient decided to check in at the time. Patient reports no suicidal ideation at this time. Patient has been medically cleared. Patient will be awaiting evaluation by the crisis counselor. Crisis counselor evaluation and taken place. Patient will be requiring treatment at this time given her history. Patient's workup has been remarkable for a worsening of her depression. Patient states that she is now suicidal and was not suicidal previously. Patient had spoken to the nurse about hurting herself and suicide. Patient is awaiting a second evaluation at this time. Assumed care of patient at [address] Coburn due to change of shift/ R MD Genaro 15:45 03/24/17. [place] team believes that [facility] should be called Delusional, bench warrent, people talking. No one to stay with. 19:39 03/24/17. [facility] has seen the patient and finds her not not holdable and not of danger to self. She also complains of a fall with back pain/ . This was an unwitnessed fall which occurred immediately after she was put in room 16 for refusal to stay in her room while awaiting [facility] and CDP evaluations. There is no tenderness on palpation she walks smoothly. He arraigned a [facility] appointment to this following Sunday. When told that she would not be detained, she stated that she would not leave until her R side was X-rayed and the swelling in her finger tips went down. There is no tenderness to palpation and no swelling of the finger tips. Radiographs would not be in the patient's best interest. The patient required critical care. Disposition: Discharged. Condition: stable. CLINICAL IMPRESSION Suicidal ideation HISTORY OF FALL NO INJURY FOUND. INSTRUCTIONS (YOU HAVE BEEN SEEN BY THE [facility] THEY BELIEVE YOU ARE SAFE FOR OUTPATIENT CARE. THEY HAVE ARRAINGED FOR A [facility] APPOINTMENT ON SUNDAY I HAVE EXAMINED YOU FOLLOWING YOUR FALL. I FIND NO INJURY. YOU ARE CLEARED FOR BOOKING INTO SHELTER IF THAT SHOULD BE NEEDED. IF YOU ARE BOOKED INTO SHELTER I RECOMMEND A MENTAL HEALTH EVALUATION WHILE INCARCERATED.). (Electronically signed by Sachin Lam MD 03/26/2017 20:42)
--- NOTE | 2017-03-24 19:43 | ED CLINICAL REPORT ---
Clinical Report - Physicians/Mid Levels [facility] [address] [place] [address] 03/23/2017 22:47 Patient: ANA RANDALL Time Seen: 2302. Arrived- By private vehicle. Historian- patient. Referred (self). HISTORY OF PRESENT ILLNESS Chief Complaint: DEPRESSED. This started past several days. Has been depressed. No unusual behavior, paranoia, delusions, suicidal thoughts or self-injury inflicted. No hallucinations. The symptoms are described as moderate. No injury is present. Additional history - son is stationed in [place]. Reports missing him. Similar symptoms previously: None. Recent medical care: Not recently seen/assessed. REVIEW OF SYSTEMS No headache, chest pain, palpitations, vomiting or skin rash. PAST HISTORY See nurses notes. SOCIAL HISTORY Smoker- current status unknown. No alcohol use or drug use. No social support. Has place to stay. FAMILY HISTORY No history of suicide attempts. ADDITIONAL NOTES The nursing notes have been reviewed. PHYSICAL EXAM Vital Signs: Oxygen saturation normal. Appearance: Alert. No acute distress. Appearance is normal. Eyes: Pupils equal, round and reactive to light. Neck: Normal inspection. Neck supple. CVS: Normal heart rate and rhythm. Heart sounds normal. Respiratory: Breath sounds normal. Chest nontender. Abdomen: Nontender. Not soft. Skin: Skin warm and dry. Normal skin color. Normal skin turgor. Psych / Neuro: Oriented X 3. Mood and affect normal. Speech normal. Cognition normal. Thought process and content normal. Insight and judgement normal. Cranial nerves normal (as tested). No cerebellar findings. No motor deficit. No sensory deficit. Reflexes normal. LABS, X-RAYS, AND EKG Laboratory Tests: UA-Culture if indicated: (BLAIRE: 03/24/2017 00:01) ( MsgRcvd 03/24/2017 03:08) Final results Test Result Flag Units (Reference) URINE COLOR YELLOW URINE APPEARANCE CLOUDY URINE GLUCOSE NEGATIVE (NEGATIVE) URINE BILIRUBIN NEGATIVE (NEGATIVE) URINE KETONE NEGATIVE (NEGATIVE) URINE SPECIFIC GRAVITY 1.025 (1.010-1.030) URINE PH 6.0 (5.0-8.0) URINE PROTEIN NEGATIVE (NEGATIVE) URINE UROBILINOGEN 0.2 EU/dL (0.2-1.0) URINE NITRITE NEGATIVE (NEGATIVE) URINE BLOOD NEGATIVE (NEGATIVE) URINE LEUK ESTERASE NEGATIVE (NEGATIVE) URINE RBC 0-1 rbc/hpf (0-1) URINE WBC 0-1 wbc/hpf (0-1) URINE EPITHELIAL CELLS 0-1 EPI/hpf (0-5) URINE BACTERIA MANY (4+) (NONE SEEN) URINE COMMENT CULTURE INDICATED URINE CULTURES ARE SET-UP BASED ON THE FOLLOWING CRITERIA:POSITIVE NITRITEPOSITIVE LEUKOCYTE ESTERASEGREATER THAN 10 WHITE BLOOD CELLSMODERATE (2+) OR GREATER BACTERIA CBC w Diff: (BLAIRE: 03/24/2017 01:30) ( MsgRcvd 03/24/2017 01:40) Final results Test Result Flag Units (Reference) WHITE BLOOD COUNT 11.3 K/uL (4.5-11.5) RED BLOOD COUNT 3.83 L M/uL (4.00-5.20) HEMOGLOBIN 11.3 L gm/dL (12.0-16.0) HEMATOCRIT 33.9 L % (36.0-46.0) MEAN CELL VOLUME 89 fL (80-100) MEAN CORPUSCULAR HGB 30 pg (26-34) MEAN CORPUSCULAR HGB CONC 33 g/dL (31-37) RED CELL DISTRIBUTION WIDTH 13.8 % (11.6-14.8) PLATELET COUNT 374 K/uL (150-400) NEUTROPHIL % 64.6 % (50-75) LYMPH % 26.1 % (25-40) MONO % 7.6 % (3-14) EOSINOPHIL % 1.2 % (0-4) BASOPHIL % 0.5 % (0-2) CMP: (BLAIRE: 03/24/2017 01:30) ( MsgRcvd 03/24/2017 01:54) Final results Test Result Flag Units (Reference) GLUCOSE 93 mg/dL (70-110) BUN 17 mg/dL (7-18) CREATININE 0.9 mg/dL (0.6-1.3) Estimated GFR >60 mL/min Estimated GFR- >60 mL/min Note: Persistent reduction over 3 months in eGFR<60 mL/min/1.73 m2 defines CKD. Patients with eGFR values>=60 mL/min/1.73 m2 may also have CKD if evidence ofpersistent proteinuria. Additional information may be foundat www.kidney.org. SODIUM 142 mmol/L (136-145) POTASSIUM 3.6 mmol/L (3.5-5.1) CHLORIDE 104 mmol/L (98-107) CARBON DIOXIDE 24 mmol/L (21-32) CALCIUM 8.8 mg/dL (8.5-10.1) TOTAL PROTEIN 7.0 g/dL (6.4-8.2) ALBUMIN 3.3 g/dL (3.3-5.0) BILIRUBIN, TOTAL 0.3 mg/dL (0.0-1.0) ALKALINE PHOSPHATASE 120 H U/L (46-116) AST (SGOT) 12 L U/L (15-37) ALT (SGPT) 20 U/L (12-78) Urine Drug Screen: (BLAIRE: 03/23/2017 22:56) ( MsgRcvd 03/23/2017 23:23) Final results Test Result Flag Units (Reference) AMPHETAMINE/METHAMPHETAMINE NEGATIVE (NEGATIVE) BARBITURATE NEGATIVE (NEGATIVE) BENZODIAZEPINE NEGATIVE (NEGATIVE) CANNABINOID NEGATIVE (NEGATIVE) COCAINE NEGATIVE (NEGATIVE) ECSTASY NEGATIVE (NEGATIVE) METHADONE NEGATIVE (NEGATIVE) OPIATE NEGATIVE (NEGATIVE) The urine drug screen is a qualitative screening test fordrug overdose and abuse. All screen results should beconsidered as presumptive.Drugs screened for are as follows:BenzodiazepinesCocaineAmphetamines/MetamphetaminesTHC (Tetrahydrocannabinol)OpiatesBarbituratesEcstasyMethadonePositive results are unconfirmed. For confirmation, notifythe lab for the specimen to be sent to the reference lab.All confirmations must be performed by a differentmethodology.The ingestion of natural herbal and plant productscontaining Ephedra/Ephedra metabolites can produce in urineone or more substances capable of cross reacting withamphetamine/methamphetamine immunoassays. These testsprovide a preliminary result only. A more specificalternative chemical method must be used to obtain aconfirmed analytical result. . PROGRESS AND PROCEDURES Course of Care: Patient presented here for depression. Patient has been waiting out in the emergency department Lobby for over 11 hours before checking in.patient was informed that she needed to leave the hospital premises or check-in. Patient decided to check in at the time. Patient reports no suicidal ideation at this time. Patient has been medically cleared. Patient will be awaiting evaluation by the crisis counselor. Crisis counselor evaluation and taken place. Patient will be requiring treatment at this time given her history. Patient's workup has been remarkable for a worsening of her depression. Patient states that she is now suicidal and was not suicidal previously. Patient had spoken to the nurse about hurting herself and suicide. Patient is awaiting a second evaluation at this time. Assumed care of patient at [address] Coburn due to change of shift/ R MD Genaro 15:45 03/24/17. [facility], bench warrent, people talking. No one to stay with. 19:39 03/24/17. [facility] has seen the patient and finds her not not holdable and not of danger to self. She also complains of a fall with back pain/ . This was an unwitnessed fall which occurred immediately after she was put in room 16 for refusal to stay in her room while awaiting [facility] and CDP evaluations. There is no tenderness on palpation she walks smoothly. He arraigned a [facility] appointment to this following Sunday. When told that she would not be detained, she stated that she would not leave until her R side was X-rayed and the swelling in her finger tips went down. There is no tenderness to palpation and no swelling of the finger tips. Radiographs would not be in the patient's best interest. The patient required critical care. Disposition: Discharged. Condition: stable. CLINICAL IMPRESSION Suicidal ideation HISTORY OF FALL NO INJURY FOUND. INSTRUCTIONS ([facility]EV[facility] ARE SAFE FOR OUTPATIENT CARE. THEY HAVE ARRAINGED FOR A [facility]POINTMENT ON SUNDAY I HAVE EXAMINED YOU FOLLOWING YOUR FALL. I FIND NO INJURY. YOU ARE CLEARED FOR BOOKING INTO SHELTER IF THAT SHOULD BE NEEDED. IF YOU ARE BOOKED INTO SHELTER I RECOMMEND A MENTAL HEALTH EVALUATION WHILE INCARCERATED.). (Electronically signed by Sachin Lam MD 03/26/2017 20:42)
--- NOTE | 2017-03-24 19:43 | ED ORDER SUMMARY ---
..... Patient: ANA RANDALL OrderSheet [facility] VisitID: [id number] [address] [place] [address] 57y, F Registration Date/Time: 03/23/2017 ORDER SHEET Weight: 47.6 kg (stated) Allergies: Demerol, morphine GENERAL ORDERS: Urine Drug Screen Urgent (22:59 03/23/2017 JQuivey R.N. per protocol) (Ack 23:00 CHagerty ER Plater Helper) (23:09 CHagerty ER Plater Helper) CMP Urgent (01:29 03/24/2017 CHagerty ER Plater Helper per protocol) (Ack 1:30 CHagerty ER Plater Helper) (1:38 JQuivey R.N.) CBC w Diff Urgent (01:29 03/24/2017 CHagerty ER Plater Helper per protocol) (Ack 1:30 CHagerty ER Plater Helper) (1:38 JQuivey R.N.) UA-Culture if indicated Urgent (02:50 03/24/2017 JQuivey R.N. verbal order read back to Shagufta Valverde) (Ack 2:54 CHagerty ER Plater Helper) (2:59 CHagerty ER Plater Helper) MEDICATION ORDERS: Keflex PO 500 mg (NOW) (03:12 03/24/2017 Shagufta Valverde) (Ack 3:13 JQuivey R.N.) (3:16 JQuivey R.N.) - (trazodone 50 mg PO once now) (03:36 03/24/2017 Shagufta Valverde) (3:49 JQuivey R.N.) -- (zyprexa 5 mg PO once now) (03:36 03/24/2017 Shagufta Valverde) (3:49 JQuivey R.N.) Ativan PO 1 mg (HIGH ALERT MEDICATION, NOW) (03:36 03/24/2017 Shagufta Valverde) (3:50 JQuivey R.N.) Tylenol PO 1,000 mg (NOW) (13:18 03/24/2017 LWhalen R.N. verbal order read back to Lindsey FORD) (13:19 LWhalen R.N.) IV FLUIDS: ORDER SHEET NOTES: [Electronically signed by Jose Jain R.N. (20:02 03/24/2017)] [Electronically signed by Sachin Lam MD (20:42 03/26/2017)] [Electronically locked/signed by Jose Jain R.N. (20:02 03/24/2017)]
--- NOTE | 2017-03-24 19:43 | ED ORDER SUMMARY ---
..... Patient: ANA RANDALL OrderSheet [facility] VisitID: [id number] [address] [place] [address] 57y, F Registration Date/Time: 03/23/2017 ORDER SHEET Weight: 47.6 kg (stated) Allergies: Demerol, morphine GENERAL ORDERS: Urine Drug Screen Urgent (22:59 03/23/2017 JQuivey R.N. per protocol) (Ack 23:00 CHagerty ER Landscape Designer) (23:09 CHagerty ER Landscape Designer) CMP Urgent (01:29 03/24/2017 CHagerty ER Landscape Designer per protocol) (Ack 1:30 CHagerty ER Landscape Designer) (1:38 JQuivey R.N.) CBC w Diff Urgent (01:29 03/24/2017 CHagerty ER Landscape Designer per protocol) (Ack 1:30 CHagerty ER Landscape Designer) (1:38 JQuivey R.N.) UA-Culture if indicated Urgent (02:50 03/24/2017 JQuivey R.N. verbal order read back to Shagufta Valverde) (Ack 2:54 CHagerty ER Landscape Designer) (2:59 CHagerty ER Landscape Designer) MEDICATION ORDERS: Keflex PO 500 mg (NOW) (03:12 03/24/2017 Shagufta Valverde) (Ack 3:13 JQuivey R.N.) (3:16 JQuivey R.N.) - (trazodone 50 mg PO once now) (03:36 03/24/2017 Shagufta Valverde) (3:49 JQuivey R.N.) -- (zyprexa 5 mg PO once now) (03:36 03/24/2017 Shagufta Valvered) (3:49 JQuivey R.N.) Ativan PO 1 mg (HIGH ALERT MEDICATION, NOW) (03:36 03/24/2017 Shagufta Valverde) (3:50 JQuivey R.N.) Tylenol PO 1,000 mg (NOW) (13:18 03/24/2017 LWhalen R.N. verbal order read back to Lindsey FORD) (13:19 LWhalen R.N.) IV FLUIDS: ORDER SHEET NOTES: [Electronically signed by Jose Jain R.N. (20:02 03/24/2017)] [Electronically signed by Sachin Lam MD (20:42 03/26/2017)] [Electronically locked/signed by Jose Jain R.N. (20:02 03/24/2017)]
--- NOTE | 2017-03-26 20:42 | ED MED RECONCILIATION SUMMARY ---
Patient: ANA RANDALL Medication Reconciliation Report [facility] VisitID: [id number] [address] [place] [address] 57y, F Registration Date/Time: 03/23/2017 Weight: 47.6 kg Height/Length: 66 in. BMI: 16.9 ALLERGIES: Demerol, morphine The patient's Home Medications are listed below: THE FOLLOWING MEDICATIONS NEED TO BE RECONCILED: Amyltripline 150 mg at hs LORazepam Oral 2 mg, 3x a day Naproxen Oral OLANZapine Oral 5 mg, at bedtime Omeprazole Oral TraZODone HCl Oral 50 mg, 1 and 1/2 tabs, at bedtime Vitamin D Oral (1000 unit) 1 capsule, hs The source(s) of the original Home Medication information: Not obtained. The following Medications were given to the patient in the Emergency Department: Keflex [PO] PO 500 mg, administered: 03/24/2017 3:16:00 AM Trazodone [PO] PO 50 mg, administered: 03/24/2017 3:49:00 AM ZYPREXA ZYDIS ODT [PO] PO 5 mg, administered: 03/24/2017 3:49:00 AM Ativan [PO] PO 1 mg, administered: 03/24/2017 3:49:00 AM Tylenol [PO] PO 1000 mg, administered: 03/24/2017 1:19:00 PM The following Medications were prescribed to the patient: None.
--- NOTE | 2017-03-26 20:42 | ED MAR SUMMARY ---
..... Medication Administration Record [facility] [address] [place] [address] Patient: ANA RANDALL Visit ID: [id number] 57y, F Weight: 47.6 kg Height/Length: 66 in BMI: 16.9 ALLERGIES: Demerol, morphine Given 03:16 03/24/2017 Callum Medellin R.N. Medication Administered: KEFLEX [PO] (CEPHALEXIN), Dose: 500 mg PO. Medication Ordered: Keflex PO 500 mg (NOW). Given 03:49 03/24/2017 Callum Medellin R.NElijah Medication Administered: TRAZODONE [PO], Dose: 50 mg PO. Medication Ordered: - (trazodone 50 mg PO once now). Given 03:49 03/24/2017 Callum Medellin R.N. Medication Administered: ZYPREXA ZYDIS ODT [PO] (OLANZAPINE), Dose: 5 mg PO. Medication Ordered: -- (zyprexa 5 mg PO once now). Given 03:49 03/24/2017 Callum Medellin R.NElijah Medication Administered: ATIVAN [PO] (LORAZEPAM), Dose: 1 mg PO. Medication Ordered: Ativan PO 1 mg (HIGH ALERT MEDICATION, NOW). Given 13:19 03/24/2017 Sue Rao R.N. Medication Administered: TYLENOL [PO] (ACETAMINOPHEN), Dose: 1000 mg Tablets PO. Medication Ordered: Tylenol PO 1,000 mg (NOW).
--- NOTE | 2017-03-26 20:42 | ED MAR SUMMARY ---
..... Medication Administration Record Located Within [facility] [address] [place] [address] Patient: ANA RANDALL Visit ID: [id number] 57y, F Weight: 47.6 kg Height/Length: 66 in BMI: 16.9 ALLERGIES: Demerol, morphine Given 03:16 03/24/2017 Callum Medellin R.N. Medication Administered: KEFLEX [PO] (CEPHALEXIN), Dose: 500 mg PO. Medication Ordered: Keflex PO 500 mg (NOW). Given 03:49 03/24/2017 Callum Medellin R.NElijah Medication Administered: TRAZODONE [PO], Dose: 50 mg PO. Medication Ordered: - (trazodone 50 mg PO once now). Given 03:49 03/24/2017 Callum Medellin R.N. Medication Administered: ZYPREXA ZYDIS ODT [PO] (OLANZAPINE), Dose: 5 mg PO. Medication Ordered: -- (zyprexa 5 mg PO once now). Given 03:49 03/24/2017 Callum Medellin R.NElijah Medication Administered: ATIVAN [PO] (LORAZEPAM), Dose: 1 mg PO. Medication Ordered: Ativan PO 1 mg (HIGH ALERT MEDICATION, NOW). Given 13:19 03/24/2017 Sue Rao R.N. Medication Administered: TYLENOL [PO] (ACETAMINOPHEN), Dose: 1000 mg Tablets PO. Medication Ordered: Tylenol PO 1,000 mg (NOW).
--- NOTE | 2017-03-26 20:42 | ED DISCHARGE INSTRUCTIONS ---
Patient: ANA RANDALL General Instructions [facility] VisitID: [id number] [address] [place] [address] 57y, F Registration Date/Time: 03/23/2017 Suicidal ideation HISTORY OF FALL NO INJURY FOUND. INSTRUCTIONS ([facility] BELIEVE [facility] ARE SAFE FOR OUTPATIENT CARE. THEY HAVE ARRAINGED FOR A [facility] APPOINTMENT ON SUNDAY I HAVE EXAMINED YOU FOLLOWING YOUR FALL. I FIND NO INJURY. YOU ARE CLEARED FOR BOOKING INTO CUSTODIAL IF THAT SHOULD BE NEEDED. IF YOU ARE BOOKED INTO CUSTODIAL I RECOMMEND A MENTAL HEALTH EVALUATION WHILE INCARCERATED.). ADDITIONAL INFORMATION Depression Depression is one of the most common mental health problems today. It is not just a state of unhappiness or sadness. It is a true disease. The cause seems to be related to a decrease in chemicals that transmit signals in the brain. Having a family history of depression, alcoholism or suicide increases the risk. Chronic illness, chronic pain, migraine headaches and high emotional stress also increase the risk. Depression can cause many different symptoms, such as: -- Loss of appetite -- Over-eating -- Not being able to sleep -- Sleeping too much -- Tiredness not related to physical exertion -- Restlessness or irritability -- Slowness of movement or speech -- Feeling depressed or withdrawn -- Loss of interest in things you once enjoyed -- Difficulty in concentrating, poor memory, have trouble making decisions -- Thoughts of harming or killing oneself, or thoughts that life is not worth living -- Low self-esteem The best treatment for depression is a combination of medicine and psychotherapy. Antidepressant medicines can reduce suffering and can improve the ability to function during the depressed period. Therapy can offer emotional support and help you understand emotional factors that may be causing the depression. Home Care: 1) Be kind to yourself. Make it a point to do things that you enjoy (gardening, walking in nature, going to a movie, etc.). Reward yourself for small successes. 2) Take care of your physical body. Eat a balanced diet (low in saturated fat and high in fruits and vegetables). Establish an exercise plan at least 3 times a week for 30 minutes. Even mild-moderate exercise (like brisk walking) can make you feel better. 3) Avoid alcohol, which can make depression worse. Follow-Up with your doctor as advised. It is important to keep in contact with a health care provider until your symptoms begin to improve. Get Prompt Medical Attention if any of the following occur: -- Feeling extreme depression, fear, anxiety, or anger toward yourself or others -- Feeling out of control -- Feeling that you may try to harm yourself or another -- Hearing voices that others do not hear -- Seeing things that others do not see -- Cant sleep or eat for 3 days in a row You have been given the following additional information: Depression (Electronically signed by Sachin Lam MD 03/26/2017 20:42)
--- NOTE | 2017-03-26 20:42 | ED MED RECONCILIATION SUMMARY ---
Patient: ANA RANDALL Medication Reconciliation Report VisitID: [id number] [address] [place] [address] 57y, F Registration Date/Time: 03/23/2017 Weight: 47.6 kg Height/Length: 66 in. BMI: 16.9 ALLERGIES: Demerol, morphine The patient's Home Medications are listed below: THE FOLLOWING MEDICATIONS NEED TO BE RECONCILED: Amyltripline 150 mg at hs LORazepam Oral 2 mg, 3x a day Naproxen Oral OLANZapine Oral 5 mg, at bedtime Omeprazole Oral TraZODone HCl Oral 50 mg, 1 and 1/2 tabs, at bedtime Vitamin D Oral (1000 unit) 1 capsule, hs The source(s) of the original Home Medication information: Not obtained. The following Medications were given to the patient in the Emergency Department: Keflex [PO] PO 500 mg, administered: 03/24/2017 3:16:00 AM Trazodone [PO] PO 50 mg, administered: 03/24/2017 3:49:00 AM ZYPREXA ZYDIS ODT [PO] PO 5 mg, administered: 03/24/2017 3:49:00 AM Ativan [PO] PO 1 mg, administered: 03/24/2017 3:49:00 AM Tylenol [PO] PO 1000 mg, administered: 03/24/2017 1:19:00 PM The following Medications were prescribed to the patient: None.
--- NOTE | 2017-03-26 20:42 | ED DISCHARGE INSTRUCTIONS ---
Patient: ANA RANDALL General Instructions [facility] VisitID: [id number] [address] [place] [address] 57y, F Registration Date/Time: 03/23/2017 Suicidal ideation HISTORY OF FALL NO INJURY FOUND. INSTRUCTIONS ([facility] BELIEVE YOU ARE SAFE FOR OUTPATIENT CARE. THEY HAVE ARRAINGED FOR A [facility]POINT[facility] ON SUNDAY I HAVE EXAMINED YOU FOLLOWING YOUR FALL. I FIND NO INJURY. YOU ARE CLEARED FOR BOOKING INTO LONG-TERM IF THAT SHOULD BE NEEDED. IF YOU ARE BOOKED INTO LONG-TERM I RECOMMEND A MENTAL HEALTH EVALUATION WHILE INCARCERATED.). ADDITIONAL INFORMATION Depression Depression is one of the most common mental health problems today. It is not just a state of unhappiness or sadness. It is a true disease. The cause seems to be related to a decrease in chemicals that transmit signals in the brain. Having a family history of depression, alcoholism or suicide increases the risk. Chronic illness, chronic pain, migraine headaches and high emotional stress also increase the risk. Depression can cause many different symptoms, such as: -- Loss of appetite -- Over-eating -- Not being able to sleep -- Sleeping too much -- Tiredness not related to physical exertion -- Restlessness or irritability -- Slowness of movement or speech -- Feeling depressed or withdrawn -- Loss of interest in things you once enjoyed -- Difficulty in concentrating, poor memory, have trouble making decisions -- Thoughts of harming or killing oneself, or thoughts that life is not worth living -- Low self-esteem The best treatment for depression is a combination of medicine and psychotherapy. Antidepressant medicines can reduce suffering and can improve the ability to function during the depressed period. Therapy can offer emotional support and help you understand emotional factors that may be causing the depression. Home Care: 1) Be kind to yourself. Make it a point to do things that you enjoy (gardening, walking in nature, going to a movie, etc.). Reward yourself for small successes. 2) Take care of your physical body. Eat a balanced diet (low in saturated fat and high in fruits and vegetables). Establish an exercise plan at least 3 times a week for 30 minutes. Even mild-moderate exercise (like brisk walking) can make you feel better. 3) Avoid alcohol, which can make depression worse. Follow-Up with your doctor as advised. It is important to keep in contact with a health care provider until your symptoms begin to improve. Get Prompt Medical Attention if any of the following occur: -- Feeling extreme depression, fear, anxiety, or anger toward yourself or others -- Feeling out of control -- Feeling that you may try to harm yourself or another -- Hearing voices that others do not hear -- Seeing things that others do not see -- Cant sleep or eat for 3 days in a row You have been given the following additional information: Depression (Electronically signed by Sachin Lam MD 03/26/2017 20:42)
== END 2017-03-24 19:55 | disposition home or self-care (01) ==
LOC: ED SRH 22:48
DX: R45.851 Suicidal ideations (principal); Z04.3 Encounter for examination and observation following other accident; F32.9 Major depressive disorder, single episode, unspecified; Z72.0 Tobacco use; Z79.899 Other long term (current) drug therapy; I10 Essential (primary) hypertension
CPT/HCPCS: 90004; 90074; 90100; 90469; 92760; 92761; 92762; 92763; 92764; 92765; 92766; 92767; 95059